=== PATIENT | male | born 1990 | race Caucasian/White ===

== ENCOUNTER 2022-05-14 22:34 | Emergency (ER) | payer MEDICAID ==
[~2022-05-14] VITALS: Ht 172.7 cm; Wt 77.1 kg
[2022-05-14 23:22] VITALS: BP_SYST 113
--- NOTE | 2022-05-14 23:29 | NUR ---
PATIENT PRESENTS TO ED FROM HOME WITH C/O ABCESS IN ANAL CAVITY X2 DAYS. PATIENT REPORTS PAIN 10/10 AT THIS TIME. PATIENT STATES "IT'S PAINFUL TO SIT OR STANDING. THE PRESSURE IS THERE NONSTOP." PATIENT REPORTS TAKING NORCO APPROX 1 HR BEFORE COMING TO ED (APPROX [id number]). PATIENT A/OX4, VSS, AMBULATORY, RESP EVEN AND UNLABORED. NAD NOTED AT THIS TIME.
--- NOTE | 2022-05-15 00:10 | NUR ---
Patient triaged and placed in ED rm 1. VSS and patient appears in no acute distress at this time. MD Rosas notified of need for MSE.
[2022-05-15] MEDS ORDERED: MORPHINE 4 MG INJ. 4 MG/ML VIAL IVP ONE (01:30)
--- NOTE | 2022-05-15 01:46 | NUR ---
# 20 gauge angiocath placed to RFA Use of asceptic technique. Opsite placed over site. Blood return noted.Flushed with 10 cc of normal saline. No evidence of infiltration noted. Patient tolerated well.
[2022-05-15 02:11] LABS: BASOPHILS % (AUTO) 0.3 % (0.0-2.0); EOSINOPHILS # (AUTO) 0.1 K/uL (0.0-0.4); EOSINOPHILS % (AUTO) 0.8 % (0.0-4.0); HEMATOCRIT 37.3 % (36-54); HEMOGLOBIN 12.8 g/dL (14.0-18.0); LYMPHOCYTES # (AUTO) 2.2 K/uL (1.0-5.5); LYMPHOCYTES % (AUTO) 16.8 % (20.5-51.5); MEAN CORPUSCULAR HEMOGLOBIN 30 pg (27-31); MEAN CORPUSCULAR HGB CONC 34 % (32-36); MEAN CORPUSCULAR VOLUME 87 fL (79.0-98.0); MONOCYTES # (AUTO) 1.2 K/uL (0.0-1.0); NEUTROPHILS # (AUTO) 9.7 K/uL (1.8-7.7); NEUTROPHILS % (AUTO) 73.1 % (40.0-70.0); PLATELET COUNT (AUTO) 262 K/uL (130-430); RED BLOOD CELL COUNT(AUTO) 4.28 MIL/uL (4.2-6.2); RED CELL DISTRIBUTION WIDTH 13.3 % (9.0-15.0); WHITE BLOOD COUNT (AUTO) 13.2 K/uL (4.8-10.8)
[2022-05-15 02:27] LABS: CREATININE 0.84 mg/dL (0.55-1.30)
[2022-05-15 02:33] LABS: ALBUMIN 3.2 g/dL (3.4-4.8); TOTAL BILIRUBIN 0.3 mg/dL (0.0-1.0)
[2022-05-15] MEDS ORDERED: PIPERACILLIN/TAZO 3.375 GM in NS 50 ML IV ONE (04:30)
[2022-05-15] MEDS ORDERED: IBUP-1969 PO (04:38)
[2022-05-15] MEDS ORDERED: AUG875 PO (04:38)
--- NOTE | 2022-05-15 04:54 | NUR ---
PATIENT RESTING QUITELY IN BED WITH EYES CLOSED BUT EASILY AROUSABLE, V/SS. WILL CONTINUE TO MONITOR
--- NOTE | 2022-05-15 05:20 | NUR ---
PATIENT D/C ,STABLE AND AMBULATED OUT OF THE UNIT, GAIT STEADY, V/SS
--- NOTE | 2022-05-15 05:30 | NUR ---
PATIENT WAS D/C HOME AT 0530. PATIENT AMBULATED OFF THE UNIT GAIT WAS STEADY AND DENIES PAIN AT THE TIME OF LEAVING THE UNIT
[2022-05-15 07:36] VITALS: BP_SYST 100
== END 2022-05-15 05:30 | disposition home or self-care (01) ==
LOC: SED 22:34
DX: K61.1 Rectal abscess (principal); Z79.899 Other long term (current) drug therapy
CPT/HCPCS: 99285; 80053; 85025; 36415; 74177; 96374; 76376; J2270